=== PATIENT | female | born 1955 | race Caucasian/White ===

== ENCOUNTER → 2016-06-06 | Outpatient (CLI) | payer OTHER | END | disposition home or self-care (01) | LOC: CFH 07:30 | PROVIDERS: ATTEND Internal Medicine Cardiovascular Disease | DX: I11.0 Hypertensive heart disease with heart failure (principal); I50.9 Heart failure, unspecified; I48.91 Unspecified atrial fibrillation | CPT/HCPCS: 78452; 93017; A9502; J2785 ==

== ENCOUNTER → 2016-06-07 | Outpatient (CLI) | payer OTHER ==
[~2016-06-07] MED LIST: REGADENOSON 0.4 MG/5 ML SYRINGE ONE
== END | disposition home or self-care (01) ==
LOC: CFH 08:07
PROVIDERS: ATTEND Internal Medicine Cardiovascular Disease
DX: I11.0 Hypertensive heart disease with heart failure (principal); I50.9 Heart failure, unspecified; I48.91 Unspecified atrial fibrillation; I08.2 Rheumatic disorders of both aortic and tricuspid valves
CPT/HCPCS: 93306; J2785

== ENCOUNTER 2016-06-20 08:31 | Day surgery (SDC) | payer OTHER ==
[~2016-06-20] VITALS: Ht 157.5 cm; Wt 57.7 kg
[2016-06-20] MEDS ORDERED: SODIUM CHLORIDE 0.9% 1,000 ML IV SCH (08:48)
[2016-06-20 08:55] VITALS: BP 105/74
[2016-06-20] MEDS ORDERED: BISACODYL 10 MG SUPP PR PRN (09:00)
[2016-06-20] MEDS ORDERED: BISACODYL 5 MG EC TABLET PO PRN (09:00)
[2016-06-20] MEDS ORDERED: ONDANSETRON 2MG/ML, 2ML IVPush PRN (09:00)
[2016-06-20] MEDS ORDERED: ASPIRIN 325 MG TABLET EC PO ONE (09:00)
[2016-06-20] MEDS ORDERED: PLEASE ENTER ALLERGIES MC SCH ×2 (09:00)
[2016-06-20] MEDS ORDERED: ACETAMINOPHEN 325 MG TABLET PO PRN (09:00)
[2016-06-20] MEDS ORDERED: PLEASE ENTER HEIGHT AND WEIGHT MC SCH (09:00)
[2016-06-20] MEDS ORDERED: LIDOCAINE 2%, 20ML ONE (09:19)
[2016-06-20] MEDS ORDERED: MIDAZOLAM 1 MG/ML, 5ML ONE (09:19)
[2016-06-20] MEDS ORDERED: FENTANYL PF 100 MCG/2ML ONE (09:19)
[2016-06-20] MEDS ORDERED: PANT40TA5 PO (09:28)
[2016-06-20] MEDS ORDERED: RAMI2.5C PO (09:28)
[2016-06-20] MEDS ORDERED: ERGO500017 PO (09:28)
[2016-06-20] MEDS ORDERED: RIVA20TA PO (09:28)
[2016-06-20] MEDS ORDERED: LEVO112T2 PO (09:28)
[2016-06-20] MEDS ORDERED: ASPIRIN 325 MG TABLET EC ONE (09:40)
[2016-06-20 10:14] LABS: BLOOD UREA NITROGEN 21 mg/dL (7-18)
[2016-06-20 10:23] LABS: GIANT PLATELETS 1+
[2016-06-20] MEDS ORDERED: ZOLPIDEM 5MG TABLET PO PRN (21:00)
== END 2016-06-20 14:50 | disposition home or self-care (01) ==
LOC: CACL 08:31
PROVIDERS: ATTEND Internal Medicine Cardiovascular Disease
DX: I25.10 Atherosclerotic heart disease of native coronary artery without angina pectoris (principal); E03.9 Hypothyroidism, unspecified; D64.9 Anemia, unspecified; E78.00 Pure hypercholesterolemia, unspecified; E55.9 Vitamin D deficiency, unspecified; I48.2 Chronic atrial fibrillation; I11.0 Hypertensive heart disease with heart failure; I50.9 Heart failure, unspecified; I05.2 Rheumatic mitral stenosis with insufficiency; Z79.01 Long term (current) use of anticoagulants
CPT/HCPCS: 36415; 71020; 80048; 85025; 93005; 93458; 99152; C1894; J2250; J3010; J3490; Q9967

== ENCOUNTER 2016-08-02 04:23 | Inpatient (IN) | payer OTHER ==
[2016-08-01 15:58] LABS: BLOOD UREA NITROGEN 18 mg/dL (7-18)
[2016-08-01 16:03] LABS: ASPARTATE AMINO TRANSFERASE 21 U/L (15-37)
[2016-08-02] VITALS (7 sets, daily range): BP systolic 102–127; BP diastolic 33–68
[~2016-08-02] VITALS: Ht 157.5 cm; Wt 64.9 kg
[~2016-08-02 04:23] MED LIST changes: +BISO5TAB2 PO; +DIGO125T PO; +ERGO500017 PO; +FURO20TA3 PO; +LANS30CA PO; +LEVO112T2 PO; +LEVO112T4 PO; +METO25TA91 PO; +PANT40TA5 PO; +POTA10TA90 PO; +RAMI2.5C PO; -REGADENOSON 0.4 MG/5 ML SYRINGE ONE; +RIVA20TA PO; +SPIR50TA2 PO
[2016-08-02] MEDS ORDERED: ALBUMIN HUMAN 5% 500 ML IV ONE ×2 (05:00→18:30)
[2016-08-02] MEDS ORDERED: CHLORHEXIDINE MOUTHWASH 15 ML UDC MM SCH (05:00)
[2016-08-02] MEDS: SODIUM CHLORIDE FLUSH 10ML SYR IVF SCH ×3 (05:31→20:15)
[2016-08-02] MEDS ORDERED: INSULIN ASPART 100 UNITS/ML, PEN SQ-INSULIN SCH (06:00)
[2016-08-02] MEDS ORDERED: MIDAZOLAM 10MG/2 ML ONE (07:11)
[2016-08-02] MEDS ORDERED: FENTANYL PF 1000 MCG/20ML ONE (07:11)
[2016-08-02] MEDS ORDERED: MANNITOL PMX 20% 500 ML IVPB PRN (07:30)
[2016-08-02] MEDS ORDERED: CEFUROXIME 1.5 GM in SODIUM CHLORIDE 0.9% 50 ML IVPB PRN (07:30)
[2016-08-02] MEDS ORDERED: VANCOMYCIN PMX 1GM/200ML 200 ML IV PRN (07:30)
[2016-08-02] MEDS ORDERED: POTASSIUM CHLORIDE 80 MEQ, SODIUM BICARBONATE 8.4% 10 MEQ, MAGNESIUM SULFATE 0.5 GM, LI... IV PRN (07:30)
[2016-08-02] MEDS ORDERED: EPINEPHRINE 2 MG in SODIUM CHLORIDE 0.9% 248 ML IV SCH (07:30)
[2016-08-02] MEDS ORDERED: REGULAR INSULIN 62.5 UNITS in SODIUM CHLORIDE 0.9% 249.375 ML IV PRN ×2 (07:30→11:40)
[2016-08-02] MEDS ORDERED: DEXMEDETOMIDINE 200 MCG in SODIUM CHLORIDE 0.9% 48 ML IV SCH (07:30)
[2016-08-02] MEDS ORDERED: PHENYLEPHRINE 10 MG in SODIUM CHLORIDE 0.9% 249 ML IV PRN ×2 (07:30→11:40)
[2016-08-02] MEDS ORDERED: PROPOFOL 10 MG/ML, 20ML ONE (08:10)
[2016-08-02] MEDS ORDERED: ROCURONIUM 10 MG/ML ONE (08:10)
[2016-08-02] MEDS ORDERED: MUPIROCIN OINT 2%, 22GM TP SCH (09:00)
[2016-08-02] MEDS ORDERED: DEXMEDETOMIDINE 200 MCG in SODIUM CHLORIDE 0.9% 48 ML IV PRN (11:40)
[2016-08-02] MEDS ORDERED: NITROGLYCERIN/D5W PMX 250 ML IV PRN (11:40)
[2016-08-02] MEDS ORDERED: SODIUM CHLORIDE 0.9% 1,000 ML IV PRN (11:40)
[2016-08-02] MEDS ORDERED: SODIUM CHLORIDE 0.9% 1,000 ML IV ONE (11:40)
[2016-08-02] MEDS ORDERED: DOBUTAMINE 250 MG in SODIUM CHLORIDE 0.9% 230 ML IV PRN (11:40)
[2016-08-02] MEDS ORDERED: DEXTROSE 50%, 50ML SYRINGE IVPush PRN (12:00)
[2016-08-02] MEDS ORDERED: DEXTROSE 4 GM TAB.CHEW PO PRN (12:00)
[2016-08-02] MEDS ORDERED: SODIUM BICARB 8.4%, 50ML SYRINGE IV PRN (12:00)
[2016-08-02] MEDS ORDERED: BISACODYL 10 MG SUPP PR PRN (12:00)
[2016-08-02] MEDS ORDERED: MEPERIDINE/PF 25MG/0.5ML IVPush PRN (12:00)
[2016-08-02] MEDS ORDERED: GLUCAGON 1 MG IM PRN (12:00)
[2016-08-02] MEDS ORDERED: BISACODYL 5 MG EC TABLET PO PRN (12:00)
[2016-08-02] MEDS ORDERED: LACTATED RINGERS 500 ML IVBOLUS PRN (12:00)
[2016-08-02] MEDS ORDERED: MIDAZOLAM 1 MG/ML, 5ML IVPush PRN (12:00)
[2016-08-02] MEDS ORDERED: ACETAMINOPHEN 650 MG SUPP PR PRN (12:00)
[2016-08-02] MEDS ORDERED: PROCHLORPERAZINE 5 MG/ML, 2ML IVPush PRN ×2 (12:00→18:17)
[2016-08-02 12:30] LABS: ABG COLLECTION SITE ARTERIAL LINE
[2016-08-02] MEDS ORDERED: POTASSIUM CHLORIDE 40 MEQ in SODIUM CHLORIDE 0.9% 100 ML IV ONE (13:00)
[2016-08-02] MEDS: KSCALE TO 4.5 IV SCH ×2 (13:00→18:00)
[2016-08-02] MEDS: MAGNESIUM SULFATE 1 GM in SODIUM CHLORIDE 0.9% 50 ML IVPB SCH (13:02)
[2016-08-02 14:23] LABS: ABG COLLECTION SITE ARTERIAL LINE
[2016-08-02] MEDS ORDERED: PROTAMINE SULFATE 10 MG/ML, 25ML ONE (14:38)
[2016-08-02] MEDS ORDERED: ALBUMIN HUMAN 25% 50 ML ONE (14:38)
[2016-08-02] MEDS ORDERED: AMINOCAPROIC ACID 250 MG/ML, 20ML ONE (14:38)
[2016-08-02] MEDS ORDERED: CALCIUM CHLORIDE 10%, 10ML SYR ONE (14:38)
[2016-08-02] MEDS ORDERED: HEPARIN 1,000 UNITS/ML, 30ML ONE (14:39)
[2016-08-02] MEDS ORDERED: SODIUM BICARBONATE 1 MEQ/ML, 50ML VIAL ONE (14:39)
[2016-08-02] MEDS ORDERED: LIDOCAINE 2% 100MG/5ML SYRINGE ONE (14:39)
[2016-08-02] MEDS ORDERED: VASOPRESSIN 20 UNIT/ML, 1ML ONE (14:39)
[2016-08-02] MEDS ORDERED: methylPREDNISolone SOD SUCC 125 MG/2 ML ONE (14:39)
[2016-08-02] MEDS: CEFUROXIME 1.5 GM in SODIUM CHLORIDE 0.9% 50 ML IVPB SCH (17:57)
[2016-08-02] MEDS ORDERED: POTASSIUM CHLORIDE 30 MEQ in SODIUM CHLORIDE 0.9% 100 ML IV ONE (18:30)
[2016-08-02] MEDS ORDERED: CALCIUM CHLORIDE 13.6 MEQ in SODIUM CHLORIDE 0.9% 100 ML IV ONE (18:30)
[2016-08-02] MEDS: morphine SULFATE 10 MG/ML, 1ML IVPush PRN (19:28)
[2016-08-02] MEDS: ONDANSETRON 2MG/ML, 2ML IVPush PRN (19:28)
[2016-08-02] MEDS: OXYcodone IR 5MG TABLET PO PRN ×2 (19:28→23:48)
[2016-08-02] MEDS: INSULIN ASPART 100 UNITS/ML, PEN SQ-INSULIN PRN ×5 (19:39→23:58)
[2016-08-02] MEDS: VANCOMYCIN 800 MG in SODIUM CHLORIDE 0.9% 100 ML IVPB SCH (20:15)
[2016-08-02] MEDS: MUPIROCIN OINT 2%, 22GM NAS SCH (20:16)
[2016-08-02] MEDS: DOCUSATE 100 MG CAPSULE PO SCH (20:16)
[2016-08-03] MEDS: INSULIN ASPART 100 UNITS/ML, PEN SQ-INSULIN PRN ×7 (01:09→20:37)
[2016-08-03] MEDS: OXYcodone IR 5MG TABLET PO PRN (02:58)
[2016-08-03] MEDS: morphine SULFATE 10 MG/ML, 1ML IVPush PRN (04:23)
[2016-08-03] MEDS: ONDANSETRON 2MG/ML, 2ML IVPush PRN (04:23)
[2016-08-03 04:46] LABS: BLOOD UREA NITROGEN 18 mg/dL (7-18)
[2016-08-03 04:59] LABS: ABG COLLECTION SITE NOT DOCUMENTED
[2016-08-03] MEDS: KSCALE TO 4.5 IV SCH ×4 (06:00→18:00)
[2016-08-03] MEDS: LEVOTHYROXINE 112 MCG TABLET PO SCH (06:02)
[2016-08-03] MEDS ORDERED: FUROSEMIDE 40 MG/4 ML ONE (07:18)
[2016-08-03] MEDS: CEFUROXIME 1.5 GM in SODIUM CHLORIDE 0.9% 50 ML IVPB SCH (07:27)
[2016-08-03] MEDS: VANCOMYCIN 800 MG in SODIUM CHLORIDE 0.9% 100 ML IVPB SCH (08:47)
[2016-08-03] MEDS: KETOROLAC 30 MG/1 ML IM SCH ×3 (08:49→19:35)
[2016-08-03] MEDS ORDERED: FUROSEMIDE 40 MG/4 ML IV SCH (09:00)
[2016-08-03] MEDS ORDERED: CALCIUM CHLORIDE 13.6 MEQ in SODIUM CHLORIDE 0.9% 100 ML IV ONE ×2 (09:00→18:00)
[2016-08-03] MEDS: SODIUM CHLORIDE FLUSH 10ML SYR IVF SCH ×3 (09:00→19:34)
[2016-08-03] MEDS ORDERED: FUROSEMIDE 20 MG/2 ML IV ONE (09:00)
[2016-08-03] MEDS: PANTOPRAZOLE 40 MG IV IVPush SCH (09:03)
[2016-08-03] MEDS: MUPIROCIN OINT 2%, 22GM NAS SCH ×2 (09:04→19:35)
[2016-08-03] MEDS: DOCUSATE 100 MG CAPSULE PO SCH ×2 (09:05→19:35)
[2016-08-03] MEDS: ASPIRIN 81 MG TABLET EC PO SCH (09:05)
[2016-08-03] MEDS: WARFARIN MODERAT DOSE PROTOCOL XX SCH (12:06)
[2016-08-03] MEDS: CHLORHEXIDINE MOUTHWASH 15 ML UDC MM SCH (12:07)
[2016-08-03] MEDS: MAGNESIUM SULFATE 1 GM in SODIUM CHLORIDE 0.9% 50 ML IVPB SCH (12:25)
[2016-08-03] MEDS ORDERED: SODIUM CHLORIDE 0.9% 500 ML IV ONE (16:30)
[2016-08-03 17:15] VITALS: BP 109/43
[2016-08-03 17:30] VITALS: BP 102/40
[2016-08-03] MEDS: EPINEPHRINE 2 MG in SODIUM CHLORIDE 0.9% 248 ML IV PRN (17:54)
[2016-08-03] MEDS ORDERED: WARFARIN 7.5 MG TABLET PO-COUM ONE (18:00)
[2016-08-03 18:30] VITALS: BP 104/47
[2016-08-03 19:00] VITALS: BP 104/49
[2016-08-03 20:00] VITALS: BP 111/52
[2016-08-03 20:36] LABS: ASPARTATE AMINO TRANSFERASE 107 U/L (15-37); BLOOD UREA NITROGEN 28 mg/dL (7-18)
[2016-08-04] MEDS: INSULIN ASPART 100 UNITS/ML, PEN SQ-INSULIN PRN ×6 (01:36→23:36)
[2016-08-04] MEDS: CHLORHEXIDINE MOUTHWASH 15 ML UDC MM SCH ×3 (01:37→23:31)
[2016-08-04] MEDS: KETOROLAC 30 MG/1 ML IM SCH ×4 (04:36→23:31)
[2016-08-04 04:41] LABS: ABG COLLECTION SITE RIGHT BRACHIAL
[2016-08-04 04:48] LABS: BLOOD UREA NITROGEN 31 mg/dL (7-18)
[2016-08-04] MEDS: LEVOTHYROXINE 112 MCG TABLET PO SCH (06:00)
[2016-08-04] MEDS: KSCALE TO 4.5 IV SCH ×2 (06:00)
[2016-08-04] MEDS: PANTOPRAZOLE 40 MG IV IVPush SCH (08:23)
[2016-08-04] MEDS: DOCUSATE 100 MG CAPSULE PO SCH ×2 (08:23→19:57)
[2016-08-04] MEDS: SODIUM CHLORIDE FLUSH 10ML SYR IVF SCH ×2 (08:23→19:56)
[2016-08-04] MEDS: MUPIROCIN OINT 2%, 22GM NAS SCH ×2 (08:23→19:57)
[2016-08-04] MEDS: ASPIRIN 81 MG TABLET EC PO SCH (08:24)
[2016-08-04] MEDS ORDERED: CALCIUM CHLORIDE 13.6 MEQ in SODIUM CHLORIDE 0.9% 100 ML IV ONE (08:30)
[2016-08-04] MEDS ORDERED: SODIUM CHLORIDE 0.9% 500 ML IV SCH (08:30)
[2016-08-04] MEDS ORDERED: ENOXAPARIN 40 MG/0.4 ML SQ SCH (09:00)
[2016-08-04] MEDS: ONDANSETRON 2MG/ML, 2ML IVPush PRN (10:12)
[2016-08-04] MEDS: HYDROcodone/APAP 10/325 MG TABLET PO PRN ×2 (10:13→23:39)
[2016-08-04] MEDS: WARFARIN MODERAT DOSE PROTOCOL XX SCH (12:00)
[2016-08-04] MEDS: MAGNESIUM SULFATE 1 GM in SODIUM CHLORIDE 0.9% 50 ML IVPB SCH (12:23)
[2016-08-04 13:17] LABS: BLOOD UREA NITROGEN 34 mg/dL (7-18)
[2016-08-04] MEDS ORDERED: SODIUM CHLORIDE 0.9%, 250ML IVBOLUS ONE (14:30)
[2016-08-04] MEDS ORDERED: WARFARIN 7.5 MG TABLET PO-COUM ONE (18:00)
[2016-08-04] MEDS ORDERED: WARFARIN 3 MG TABLET PO-COUM ONE (18:00)
[2016-08-04] MEDS ORDERED: WARFARIN 5 MG TABLET PO-COUM ONE (18:00)
[2016-08-05] MEDS: KETOROLAC 30 MG/1 ML IM SCH (04:27)
[2016-08-05] MEDS: INSULIN ASPART 100 UNITS/ML, PEN SQ-INSULIN PRN ×4 (04:33→16:46)
[2016-08-05 04:35] VITALS: BP 112/54
[2016-08-05] MEDS: LEVOTHYROXINE 112 MCG TABLET PO SCH (05:27)
[2016-08-05 05:49] LABS: BLOOD UREA NITROGEN 31 mg/dL (7-18)
[2016-08-05] MEDS: MUPIROCIN OINT 2%, 22GM NAS SCH ×2 (07:52→21:21)
[2016-08-05] MEDS: ASPIRIN 81 MG TABLET EC PO SCH (07:52)
[2016-08-05] MEDS: PANTOPRAZOLE 40 MG IV IVPush SCH (07:52)
[2016-08-05] MEDS: SODIUM CHLORIDE FLUSH 10ML SYR IVF SCH ×2 (07:52→21:21)
[2016-08-05] MEDS: DOCUSATE 100 MG CAPSULE PO SCH ×2 (07:52→21:21)
[2016-08-05] MEDS ORDERED: SODIUM CHLORIDE 0.9% 500 ML IV ONE (08:30)
[2016-08-05] MEDS: EPINEPHRINE 2 MG in SODIUM CHLORIDE 0.9% 248 ML IV PRN (11:02)
[2016-08-05] MEDS: WARFARIN MODERAT DOSE PROTOCOL XX SCH (11:08)
[2016-08-05] MEDS ORDERED: ALBUMIN HUMAN 5% 500 ML IV ONE (11:30)
[2016-08-05] MEDS ORDERED: WARFARIN 2.5 MG TABLET PO-COUM SCH (18:00)
[2016-08-05] MEDS: ACETAMINOPHEN 325 MG TABLET PO PRN (18:26)
[2016-08-06 04:00] VITALS: BP 116/57
[2016-08-06] MEDS: ACETAMINOPHEN 325 MG TABLET PO PRN ×2 (04:22→15:01)
[2016-08-06 05:31] LABS: BLOOD UREA NITROGEN 22 mg/dL (7-18)
[2016-08-06] MEDS: KETOROLAC 30 MG/1 ML IM PRN (06:00)
[2016-08-06] MEDS: LEVOTHYROXINE 112 MCG TABLET PO SCH (06:00)
[2016-08-06] MEDS: PANTOPRAZOLE 40 MG IV IVPush SCH (08:42)
[2016-08-06] MEDS: SODIUM CHLORIDE FLUSH 10ML SYR IVF SCH ×2 (08:42→21:36)
[2016-08-06] MEDS: ASPIRIN 81 MG TABLET EC PO SCH (08:42)
[2016-08-06] MEDS: DOCUSATE 100 MG CAPSULE PO SCH ×2 (08:42→21:33)
[2016-08-06] MEDS: MUPIROCIN OINT 2%, 22GM NAS SCH ×2 (08:42→21:33)
[2016-08-06] MEDS: ONDANSETRON 2MG/ML, 2ML IVPush PRN (08:43)
[2016-08-06] MEDS: WARFARIN MODERAT DOSE PROTOCOL XX SCH (09:04)
[2016-08-06 14:46] VITALS: BP 123/62
[2016-08-06] MEDS ORDERED: WARFARIN 1 MG TABLET PO-COUM SCH (18:00)
[2016-08-06 18:53] VITALS: BP 124/67
[2016-08-07] MEDS: HYDROcodone/APAP 10/325 MG TABLET PO PRN (00:52)
[2016-08-07 01:00] VITALS: BP 124/67
[2016-08-07 02:00] VITALS: BP 115/63
[2016-08-07] MEDS: LEVOTHYROXINE 112 MCG TABLET PO SCH (04:04)
[2016-08-07] MEDS: ACETAMINOPHEN 325 MG TABLET PO PRN (04:04)
[2016-08-07 04:52] LABS: BLOOD UREA NITROGEN 18 mg/dL (7-18)
[2016-08-07 07:26] VITALS: BP 111/58
[2016-08-07] MEDS: SODIUM CHLORIDE FLUSH 10ML SYR IVF SCH ×2 (08:01→21:18)
[2016-08-07] MEDS: KETOROLAC 30 MG/1 ML IM PRN (08:04)
[2016-08-07] MEDS: MUPIROCIN OINT 2%, 22GM NAS SCH (08:05)
[2016-08-07] MEDS: PANTOPRAZOLE 40 MG IV IVPush SCH (08:05)
[2016-08-07] MEDS: ONDANSETRON 2MG/ML, 2ML IVPush PRN (08:10)
[2016-08-07] MEDS: DOCUSATE 100 MG CAPSULE PO SCH ×2 (08:10→21:18)
[2016-08-07] MEDS: ASPIRIN 81 MG TABLET EC PO SCH (08:11)
[2016-08-07 15:10] VITALS: BP 134/70
[2016-08-07] MEDS: FUROSEMIDE 20 MG/2 ML IV SCH (16:19)
[2016-08-07 19:54] VITALS: BP 131/57
[2016-08-08 02:12] VITALS: BP 127/63
[2016-08-08] MEDS: KETOROLAC 30 MG/1 ML IM PRN (04:38)
[2016-08-08 05:26] LABS: BLOOD UREA NITROGEN 14 mg/dL (7-18)
[2016-08-08] MEDS: LEVOTHYROXINE 112 MCG TABLET PO SCH (06:05)
[2016-08-08 07:36] VITALS: BP 119/61
[2016-08-08] MEDS: FUROSEMIDE 20 MG/2 ML IV SCH ×2 (08:07→18:09)
[2016-08-08] MEDS: PANTOPRAZOLE 40 MG IV IVPush SCH (08:07)
[2016-08-08] MEDS: ACETAMINOPHEN 325 MG TABLET PO PRN ×2 (08:08→20:18)
[2016-08-08] MEDS: SODIUM CHLORIDE FLUSH 10ML SYR IVF SCH ×2 (08:08→20:18)
[2016-08-08] MEDS: POTASSIUM CHLORIDE 20 MEQ TAB.ER.PRT PO SCH (08:08)
[2016-08-08] MEDS: DOCUSATE 100 MG CAPSULE PO SCH ×2 (08:08→20:18)
[2016-08-08] MEDS: ASPIRIN 81 MG TABLET EC PO SCH (08:08)
[2016-08-08 13:19] VITALS: BP 108/62
[2016-08-08 19:32] VITALS: BP 128/62
[2016-08-09 01:16] VITALS: BP 129/63
[2016-08-09] MEDS: ACETAMINOPHEN 325 MG TABLET PO PRN ×2 (02:13→21:03)
[2016-08-09] MEDS: LEVOTHYROXINE 112 MCG TABLET PO SCH (04:38)
[2016-08-09 05:12] LABS: BLOOD UREA NITROGEN 12 mg/dL (7-18)
[2016-08-09 08:20] VITALS: BP 126/65
[2016-08-09] MEDS ORDERED: PANTOPROZOLE 40MG TABLET PO SCH (09:00)
[2016-08-09] MEDS: FUROSEMIDE 20 MG/2 ML IV SCH ×2 (09:20→17:05)
[2016-08-09] MEDS: POTASSIUM CHLORIDE 20 MEQ TAB.ER.PRT PO SCH (09:20)
[2016-08-09] MEDS: ASPIRIN 81 MG TABLET EC PO SCH (09:20)
[2016-08-09] MEDS: DOCUSATE 100 MG CAPSULE PO SCH ×2 (09:21→21:04)
[2016-08-09] MEDS: SODIUM CHLORIDE FLUSH 10ML SYR IVF SCH ×2 (09:21→21:04)
[2016-08-09] MEDS: WARFARIN MODERAT DOSE PROTOCOL XX SCH (12:17)
[2016-08-09 15:11] VITALS: BP 131/64
[2016-08-09] MEDS ORDERED: WARFARIN 5 MG TABLET PO-COUM SCH (18:00)
[2016-08-09 19:38] VITALS: BP 124/60
[2016-08-10 01:28] VITALS: BP 112/58
[2016-08-10 05:22] LABS: BLOOD UREA NITROGEN 10 mg/dL (7-18)
[2016-08-10] MEDS: LEVOTHYROXINE 112 MCG TABLET PO SCH (05:45)
[2016-08-10 06:44] VITALS: BP 131/64
[2016-08-10] MEDS: FUROSEMIDE 20 MG/2 ML IV SCH (07:30)
[2016-08-10] MEDS ORDERED: ASPI-621 PO (08:24)
[2016-08-10] MEDS: ASPIRIN 81 MG TABLET EC PO SCH (08:32)
[2016-08-10] MEDS: POTASSIUM CHLORIDE 20 MEQ TAB.ER.PRT PO SCH (09:13)
[2016-08-10] MEDS ORDERED: WARF5TAB PO ×2 (10:41→13:13)
[2016-08-10 12:33] VITALS: BP 150/72
[2016-08-10] MEDS ORDERED: HYDR-3241 PO (13:14)
== END 2016-08-10 15:13 | disposition home health service (06) | DRG 220 ==
LOC: 5SO 04:23 → CCU 09:07 → CSU 09:49 → 5SO 08-06 14:42
PROVIDERS: ADMIT Thoracic Surgery (Cardiothoracic Vascular Surgery); ATTEND Thoracic Surgery (Cardiothoracic Vascular Surgery)
PROC: 02580ZZ Destruction of Conduction Mechanism, Open Approach (ICD-10-PCS; 2016-08-02)
PROC: B24BZZ4 Ultrasonography of Heart with Aorta, Transesophageal (ICD-10-PCS; 2016-08-02)
PROC: 5A1221Z Performance of Cardiac Output, Continuous (ICD-10-PCS; 2016-08-02)
PROC: 5A1223Z Performance of Cardiac Pacing, Continuous (ICD-10-PCS; 2016-08-02)
PROC: 30233L1 Transfusion of Nonautologous Fresh Plasma into Peripheral Vein, Percutaneous Approach (ICD-10-PCS; 2016-08-02)
PROC: 30233N1 Transfusion of Nonautologous Red Blood Cells into Peripheral Vein, Percutaneous Approach (ICD-10-PCS; 2016-08-02)
PROC: 30233R1 Transfusion of Nonautologous Platelets into Peripheral Vein, Percutaneous Approach (ICD-10-PCS; 2016-08-02)
PROC: 30233K1 Transfusion of Nonautologous Frozen Plasma into Peripheral Vein, Percutaneous Approach (ICD-10-PCS; 2016-08-02)
PROC: 02RG08Z Replacement of Mitral Valve with Zooplastic Tissue, Open Approach (ICD-10-PCS; principal; 2016-08-02 08:30)
DX: I08.0 Rheumatic disorders of both mitral and aortic valves (principal); J98.11 Atelectasis; J90 Pleural effusion, not elsewhere classified; E87.2 Acidosis; E78.5 Hyperlipidemia, unspecified; E89.0 Postprocedural hypothyroidism; I12.9 Hypertensive chronic kidney disease with stage 1 through stage 4 chronic kidney disease, or unspecified chronic kidney disease; I25.10 Atherosclerotic heart disease of native coronary artery without angina pectoris; I48.2 Chronic atrial fibrillation; I70.0 Atherosclerosis of aorta; N18.3 Chronic kidney disease, stage 3 (moderate); Z79.01 Long term (current) use of anticoagulants; Z90.49 Acquired absence of other specified parts of digestive tract
CPT/HCPCS: 36415; 36600; 71010; 71020; 80048; 80053; 81003; 82040; 82330; 82533; 82800; 82803; 82810; 82947; 82962; 83036; 83735; 84132; 84295; 85014; 85018; 85025; 85049; 85347; 85610; 85730; 86850; 86900; 86923; 87081; 88305; 93005; 93312; 93321; 93325; 93880; 94002; J0697; J1644; J1815; J1885; J2250; J2405; J2704; J2720; J3010; J3370; J3475; J3480; J3490; J7120; P9045; P9047; C1760; C1763; C2618; C9113; J0171; J1940; J2270; J2370; J2930; J7030; J7040; J7050; P9016; P9017; P9035

== ENCOUNTER 2017-03-21 10:04 | Emergency (ER) | payer OTHER ==
[~2017-03-21] VITALS: Ht 157.5 cm; Wt 64.2 kg
[~2017-03-21 10:04] MED LIST changes: +ASPI-621 PO; +HYDR-3241 PO; +POTA10TA6 PO; -POTA10TA90 PO; +WARF5TAB PO
[2017-03-21] MEDS ORDERED: ROSU5TAB PO (10:47)
[2017-03-21] MEDS ORDERED: PANT40TA5 PO (10:47)
[2017-03-21] MEDS ORDERED: ASPIRIN 81 MG TABLET CHEW ONE (10:50)
[2017-03-21] MEDS ORDERED: SODIUM CHLORIDE FLUSH 10ML SYR IVF ONE (11:00)
[2017-03-21] MEDS ORDERED: ASPIRIN 81 MG TABLET CHEW PO ONE (11:00)
[2017-03-21 11:14] LABS: BASOPHILS # (AUTO) 0.01 x10^3/uL (0-0.1); BASOPHILS % (AUTO) 0 % (0-1); EOSINOPHILS # (AUTO) 0.01 x10^3/uL (0-0.4); EOSINOPHILS % (AUTO) 0 % (1-7); LYMPHOCYTES # (AUTO) 0.85 x10^3/uL (1-3.4); LYMPHOCYTES % (AUTO) 11 % (22-44); MD NO; MEAN CORPUSCULAR HGB CONC 32.9 g/dL (32.4-35.8); MEAN CORPUSCULAR VOLUME 85.2 fL (80-100); MEAN PLATELET VOLUME 10.1 fL (7.4-10.4); MONOCYTES # (AUTO) 0.44 x10^3/uL (0.2-0.8); MONOCYTES % (AUTO) 6 % (2-9); NEUTROPHILS # (AUTO) 6.39 x10^3/uL (1.8-6.8); NEUTROPHILS % (AUTO) 83 % (42-75); PLATELET COUNT 182 x10^3/uL (130-400); RED BLOOD COUNT 4.83 x10^6/uL (3.82-5.3); RED CELL DISTRIBUTION WIDTH 12.8 % (9.6-15.2)
[2017-03-21 11:27] LABS: ALANINE AMINOTRANSFERASE 24 U/L (12-78); ANION GAP 7 mmol/L (5-15); CALCIUM 8.6 mg/dL (8.5-10.1); CHLORIDE 104 mmol/L (98-107); CREATININE 0.93 mg/dL (0.55-1.02)
[2017-03-21 11:30] LABS: PROTHROMBIN TIME 10.3 Seconds (9.6-11.5)
[2017-03-21 11:32] LABS: ALKALINE PHOSPHATASE 111 U/L (45-117); BILIRUBIN,TOTAL 0.7 mg/dL (0.2-1.0); TOTAL PROTEIN 8.1 g/dL (6.4-8.2); TROPONIN I < 0.015 ng/mL (0.000-0.045)
[2017-03-21] MEDS ORDERED: OMNIPAQUE 350 MG/ML, 100ML BOTTLE ONE (12:18)
[2017-03-21 13:48] VITALS: BP 125/75
== END 2017-03-21 14:08 | disposition home or self-care (01) ==
LOC: ED 12:44
DX: R00.0 Tachycardia, unspecified (principal); I10 Essential (primary) hypertension; Z95.2 Presence of prosthetic heart valve
CPT/HCPCS: 36415; 71045; 71275; 80053; 83880; 84484; 85025; 85610; 85730; 93005; 99285; Q9967

== ENCOUNTER 2017-03-27 10:34 | Day surgery (SDC) | payer OTHER ==
[~2017-03-27] VITALS: Ht 157.5 cm; Wt 62.7 kg
[~2017-03-27 10:34] MED LIST changes: +ROSU5TAB PO
[2017-03-27] MEDS ORDERED: APIX5TAB PO (11:25)
[2017-03-27] MEDS ORDERED: METO25TA91 PO (11:25)
[2017-03-27] MEDS ORDERED: FURO20TA3 PO (11:25)
[2017-03-27] MEDS ORDERED: SODIUM CHLORIDE 0.9% 1,000 ML IV SCH (11:30)
[2017-03-27] MEDS ORDERED: PROPOFOL 10 MG/ML, 20ML ONE (12:34)
[2017-03-27] MEDS ORDERED: METO-282 PO (13:03)
== END 2017-03-27 14:05 ==
LOC: CACL 10:34
PROVIDERS: ATTEND Internal Medicine Cardiovascular Disease
DX: I48.91 Unspecified atrial fibrillation (principal); I10 Essential (primary) hypertension; E78.5 Hyperlipidemia, unspecified; E03.9 Hypothyroidism, unspecified; I05.2 Rheumatic mitral stenosis with insufficiency; Z95.2 Presence of prosthetic heart valve; I35.1 Nonrheumatic aortic (valve) insufficiency; Z79.82 Long term (current) use of aspirin
CPT/HCPCS: 71046; 92960; 93005; 93312; 93325; J2704

== ENCOUNTER → 2018-06-30 | Outpatient (CLI) | payer BC, OTHER ==
[~2018-06-30] MED LIST changes: +APIX5TAB PO; -ASPI-621 PO; +ASPI81TA45 PO; +METO-282 PO; -RAMI2.5C PO; +RAMI2.5C2 PO; -SPIR50TA2 PO; +SPIR50TA4 PO
== END | disposition home or self-care (01) ==
LOC: CFH 12:30
PROVIDERS: ATTEND Internal Medicine Cardiovascular Disease
DX: I35.1 Nonrheumatic aortic (valve) insufficiency (principal); I10 Essential (primary) hypertension; E78.5 Hyperlipidemia, unspecified
CPT/HCPCS: 93306

== ENCOUNTER → 2018-07-29 | Outpatient (CLI) | payer BC | END | disposition home or self-care (01) | LOC: CFH 08:13 | PROVIDERS: ATTEND Internal Medicine Cardiovascular Disease | DX: I48.0 Paroxysmal atrial fibrillation (principal); R07.9 Chest pain, unspecified | CPT/HCPCS: 78452; 93017; A9502 ==

== ENCOUNTER → 2018-08-11 | Outpatient (CLI) | payer BC | END | disposition home or self-care (01) | LOC: CFH 08:23 | PROVIDERS: ATTEND Nurse Practitioner Family | DX: R51 Headache (principal); M79.609 Pain in unspecified limb | CPT/HCPCS: 70450 ==

== ENCOUNTER → 2019-08-30 | Outpatient (CLI) | payer OTHER ==
[~2019-08-30] MED LIST changes: -BISO5TAB2 PO; +BISO5TAB8 PO; -DIGO125T PO; +DIGO125T85 PO; -WARF5TAB PO; +WARF5TAB2 PO
== END | disposition home or self-care (01) ==
LOC: CFH 08:22
PROVIDERS: ATTEND Internal Medicine Cardiovascular Disease
DX: I08.2 Rheumatic disorders of both aortic and tricuspid valves (principal)
CPT/HCPCS: 93306

== ENCOUNTER → 2020-09-11 | Outpatient (CLI) | payer MEDICARE ==
[~2020-09-11] MED LIST changes: -PANT40TA5 PO; +PANT40TA6 PO; -RAMI2.5C2 PO; +RAMI2.5C49 PO
== END | disposition home or self-care (01) ==
LOC: CFH 15:46
PROVIDERS: ATTEND Internal Medicine Cardiovascular Disease
DX: I08.8 Other rheumatic multiple valve diseases (principal)
CPT/HCPCS: 93306

== ENCOUNTER → 2020-09-29 | Outpatient (CLI) | payer MEDICARE | END | disposition home or self-care (01) | LOC: CFH 08:52 | PROVIDERS: ATTEND Nurse Practitioner Family | DX: Z12.31 Encounter for screening mammogram for malignant neoplasm of breast (principal); M81.0 Age-related osteoporosis without current pathological fracture; N95.8 Other specified menopausal and perimenopausal disorders | CPT/HCPCS: 77063; 77067; 77080 ==